=== PATIENT | male | born 1995 | race African-American/Black ===

== ENCOUNTER 2020-06-14 16:49 | Emergency (ER) | payer OTHER ==
[~2020-06-14] VITALS: Ht 188 cm; Wt 100.0 kg
[2020-06-14 17:00] VITALS: TEMP 98.5
[2020-06-14 20:48] VITALS: BP 106/66; PULSE 64
== END 2020-06-14 20:50 | disposition home or self-care (01) ==
LOC: COL.ER 16:49
DX: J36 Peritonsillar abscess (principal)
CPT/HCPCS: J1100; J7120